=== PATIENT | male | born 1945 ===

== ENCOUNTER 2019-05-05 09:51 | Outpatient (RCR) | payer MEDICARE, MEDICAID ==
[~2019-05-05] VITALS: Ht 172.7 cm; Wt 54.4 kg
[2019-05-20] MEDS ORDERED: Lidocaine HCl 2% Jelly 6ml Tube TOPIC ONE (17:45)
== END 2019-05-21 | disposition home or self-care (01) ==
LOC: WCC 09:51
DX: T86.828 Other complications of skin graft (allograft) (autograft) (principal); L97.523 Non-pressure chronic ulcer of other part of left foot with necrosis of muscle; E11.622 Type 2 diabetes mellitus with other skin ulcer; I12.9 Hypertensive chronic kidney disease with stage 1 through stage 4 chronic kidney disease, or unspecified chronic kidney disease; E11.22 Type 2 diabetes mellitus with diabetic chronic kidney disease; N18.9 Chronic kidney disease, unspecified; Z95.0 Presence of cardiac pacemaker; F17.200 Nicotine dependence, unspecified, uncomplicated
CPT/HCPCS: 11043; 71046

== ENCOUNTER → 2019-05-05 | Outpatient (CLI) | payer MEDICARE, MEDICAID ==
--- NOTE | 2019-05-05 12:47 | Diagnostic Imaging Report ---
Indication: Cough Technique: 2 views of the chest Comparison: None Findings: The lungs are hyperinflated. Bullous changes are seen in the right mid and lower lung. There is accentuation of bronchovascular markings diffusely. There may be some hazy infiltrate in the right perihilar region. Pleural scarring is seen in the right lung apex. The heart size is upper limits normal. There is a pacemaker. There is evidence of prior CABG. No definite effusions. Impression: COPD changes. Right perihilar infiltrate Other findings as noted
== END | disposition home or self-care (01) ==
LOC: RAD 11:26
DX: R05 Cough (principal); J44.9 Chronic obstructive pulmonary disease, unspecified; Z95.0 Presence of cardiac pacemaker
CPT/HCPCS: 71046

== ENCOUNTER 2019-06-02 09:36 | Outpatient (RCR) | payer MEDICARE, MEDICAID | END 2019-06-16 | disposition home or self-care (01) | LOC: WCC 09:36 | DX: T86.828 Other complications of skin graft (allograft) (autograft) (principal); L97.523 Non-pressure chronic ulcer of other part of left foot with necrosis of muscle; E11.622 Type 2 diabetes mellitus with other skin ulcer; Z95.0 Presence of cardiac pacemaker; Z95.5 Presence of coronary angioplasty implant and graft; F17.200 Nicotine dependence, unspecified, uncomplicated; I12.9 Hypertensive chronic kidney disease with stage 1 through stage 4 chronic kidney disease, or unspecified chronic kidney disease; E11.22 Type 2 diabetes mellitus with diabetic chronic kidney disease; N18.9 Chronic kidney disease, unspecified; Z79.899 Other long term (current) drug therapy; Z79.82 Long term (current) use of aspirin | CPT/HCPCS: 11043; 15275; Q4133 ==

== ENCOUNTER 2019-06-16 10:37 | Emergency (ER) | payer MEDICARE, OTHER ==
[~2019-06-16] VITALS: Ht 165.1 cm; Wt 56.7 kg
[2019-06-16] VITALS (7 sets, daily range): BP systolic 87–120; BP diastolic 50–76
--- NOTE | 2019-06-16 10:45 | NUR ---
ED Nurse Note: Patient brought in to the ER by due to SOB. As per , only 30% of pt's heart, lungs, and kidneys are functioning since two years ago but came in today for worsening SOB. Patient was admitted to [facility] couple days ago due to SOB too. Alert and oriented, verbally responsive. O2 tx @ 2LPM. at bedside.
[2019-06-16] MEDS ORDERED: Calcium Chloride 10% 10ml carpuject IVP ONE (11:16)
[2019-06-16] MEDS ORDERED: Sodium Bicarbonate 50ml Carp ONE (11:16)
[2019-06-16] MEDS ORDERED: Solu-MEDROL 125mg Inj IVP ONE (11:30)
[2019-06-16] MEDS ORDERED: Sodium Chloride 550 ML ONE (11:37)
[2019-06-16] MEDS ORDERED: Albuterol ud Inhalation ONE ×3 (11:40→12:28)
--- NOTE | 2019-06-16 11:40 | NUR ---
ED Nurse Note: Bolus 500ml order received and verified with ERMD to administer slowly.
[2019-06-16] MEDS ORDERED: Ipratropium 0.02% Inh Soln 2.5ml UD ONE ×3 (11:41→12:28)
[2019-06-16] MEDS ORDERED: Solu-MEDROL 125mg Inj ONE (11:43)
[2019-06-16 11:47] LABS: BASOPHILS % (AUTO) 0.9 % (0.0-2.0); EOSINOPHILS % (AUTO) 8.9 % (0.0-3.0); HEMATOCRIT 36.7 % (42.0-52.0); HEMOGLOBIN 11.7 G/DL (14.2-18.0); MEAN CORPUSCULAR VOLUME 93 FL (80-99); MONOCYTES % (AUTO) 6.1 % (1.0-10.0); NEUTROPHILS % (AUTO) 75.1 % (45.0-75.0); PLATELET COUNT 143 K/UL (150-450); RED BLOOD COUNT 3.96 M/UL (4.70-6.10); RED CELL DISTRIBUTION WIDTH 15.1 % (11.6-14.8)
[2019-06-16] MEDS: Albuterol ud Inhalation HHN SCH ×3 (11:48→12:30)
[2019-06-16] MEDS: Ipratropium 0.02% Inh Soln 2.5ml UD HHN SCH ×3 (11:48→12:30)
[2019-06-16 12:09] LABS: ANION GAP 12 mmol/L (5-15); BLOOD UREA NITROGEN 65 mg/dL (7-18); CALCIUM 8.9 MG/DL (8.5-10.1); CARBON DIOXIDE 21 MMOL/L (21-32); CHLORIDE 106 MMOL/L (98-107); CREATININE 1.9 MG/DL (0.55-1.30); POTASSIUM 5.2 MMOL/L (3.5-5.1); SODIUM 139 MMOL/L (136-145)
[2019-06-16 12:21] LABS: ALANINE AMINOTRANSFERASE 23 U/L (12-78); ALBUMIN 3.2 G/DL (3.4-5.0); ALBUMIN/GLOBULIN RATIO 0.9 (1.0-2.7); ALKALINE PHOSPHATASE 110 U/L (46-116); ASPARTATE AMINO TRANSFERASE 29 U/L (15-37); CKMB 1.6 NG/ML (0.0-3.6); CREATINE KINASE 53 U/L (26-308)
[2019-06-16] MEDS ORDERED: cefTRIAXone 1 GM in NS 55 ML IVPB ONE (12:30)
[2019-06-16] MEDS ORDERED: Azithromycin 500 MG in NS 275 ML IV ONE (12:30)
--- NOTE | 2019-06-16 13:19 | NUR ---
ED Nurse Note: .
--- NOTE | 2019-06-16 13:30 | NUR ---
ED Nurse Note: Resident seen in bed. Verbally responsive. On 02 tx @ 2LPM. Breathing even and unlabored. VS are stable.
--- NOTE | 2019-06-16 14:05 | NUR ---
ED Nurse Note: Patient found to be in tripod positioning in bed, c/o SOB, dyspnea and appears to be anxious. Patient able speak sentences, but unable to speak full sentences noted. Pulse oximetry reading with 2L N/C on room air was 98% with RR 24, HR 80, paced rhythm. Dr. Devries immediately notified.
--- NOTE | 2019-06-16 14:06 | NUR ---
ED Nurse Note: Placed pateint on 15L nonrebreather mask.
--- NOTE | 2019-06-16 14:10 | NUR ---
ED Nurse Note: Dr. Devries and Julius MENEZES at bedside. Patient became unresponsive, no spontaneous breathing noted. Code blue initiated. Assisted patient's breathing with BVM and CPR initiated immediately. Please see code blue sheet.
--- NOTE | 2019-06-16 14:25 | NUR ---
ED Nurse Note: Patient remained unresponsive. Patient pulse present when RN palpated on the left femoral. RT connected patient to ventilator and pulse oximetry reading maintaining > 94%. Equal chest rise and fall noted. Patient remained on hall monitor. Paced rhythm noted.
--- NOTE | 2019-06-16 14:25 | NUR ---
ED Nurse Note: X-ray tech here at bedside. ET tube, 7.5cm @ 23cm, middle lip.
--- NOTE | 2019-06-16 14:40 | NUR ---
ED Nurse Note: SADA Reina contacted patient's to return to ER.
--- NOTE | 2019-06-16 14:45 | NUR ---
ED Nurse Note: Dr. eDvries here inserting central line to right femoral. Sterile technique/field maintained.
--- NOTE | 2019-06-16 15:10 | NUR ---
ED Nurse Note: RT here attemtped to collect ABC sample.
--- NOTE | 2019-06-16 15:16 | NUR ---
ED Nurse Note: Patient found to have no pulse. Code blue initiated. Dr. Devries at bedside and talking to patient's spouse (Kirk Choi).
--- NOTE | 2019-06-16 15:20 | NUR ---
ED Nurse Note: RN removed Levophed 8mg from crash cart and mixed in D5W as ordered. RN administered via central line at 10mcg/min as ordered. Dr. Devries at bedside.
--- NOTE | 2019-06-16 15:40 | NUR ---
ED Nurse Note: Patient . No palpable pulse or spontaneous breathing noted. PEA noted on playground monitor. Prounced by Dr. Devries.
--- NOTE | 2019-06-16 15:40 | NUR ---
pronounced patient expierd by dr cruz
--- NOTE | 2019-06-16 16:00 | NUR ---
spoke to dr baez the primary md @[phone]. per primary md he will sign the cirtificate
--- NOTE | 2019-06-16 16:30 | NUR ---
ED Nurse Note: Dr. Devries spoke to patient's , son. Provided postmortem care. Provided privacy.
--- NOTE | 2019-06-16 16:50 | NUR ---
called coroners office spoke to luc . case will be declined due per coroners office. since there is a dr to sign the certificate
--- NOTE | 2019-06-16 17:01 | Emergency Room Report ---
History of Present Illness General Chief Complaint: Dyspnea/Respdistress Source: Patient, Significant Other Present Illness HPI 73-year-old M presents ED for evaluation. Brought in by family to ER from wound care clinic here at [facility]. Presents with worsening shortness of breath. History of COPD. states that patient's heart lungs and kidney are operating at 30%. Was being treated for a wound to his ankle. States he has been having a cough and difficulty breathing. Denies chest pain. Denies fevers or chills. No other aggravating relieving factors. Denies any other associated symptoms Allergies: Coded Allergies: NO KNOWN DRUG ALLERGIES (Verified Allergy, Unknown, 06/16/19) Patient History Past Medical History: DM, HTN, renal disease Past Surgical History: none, pacemaker Pertinent Family History: none Social History: Denies: smoking, alcohol use, drug use Immunizations: UTD Reviewed Nursing Documentation: PMH: Agreed; PSxH: Agreed Nursing Documentation-PMH Past Medical History: No History, Except For Hx Cardiac Problems: Yes Hx Pacemaker: Yes - bypass Hx Diabetes: Yes Review of Systems All Other Systems: negative except mentioned in HPI Physical Exam Vital Signs Date Time Temp Pulse Resp B/P (MAP) Pulse Ox O2 Delivery O2 Flow Rate FiO2 06/16/19 10:42 97.0 76 20 101/62 (75) 93 Room Air 06/16/19 10:45 2.0 06/16/19 11:46 28 Sp02 EP Interpretation: reviewed, normal General Appearance: mild distress, cachetic Head: normocephalic Eyes: bilateral eye normal inspection, bilateral eye PERRL ENT: normal ENT inspection Neck: normal inspection Respiratory: chest non-tender, decreased breath sounds, speaking full sentences , wheezing Cardiovascular #1: regular rate, rhythm, no edema Gastrointestinal: normal bowel sounds, non tender, soft, non-distended, no guarding, no rebound Rectal: deferred Genitourinary: no CVA tenderness Musculoskeletal: back normal Neurologic: alert, oriented x3, responsive, motor strength/tone normal, sensory intact, speech normal Psychiatric: judgement/insight normal, memory normal, mood/affect normal, no suicidal/homicidal ideation Skin: other - see nursing notes Lymphatic: normal inspection Procedures Critical Care Time Critical Care Time i. I feel this is a highly complex case requiring extensive working including EKG/Rhythm strip, Xray/CT/US, Blood/urine lab work, repeat exams while in ED, and administration of strong opiates/narcotics for pain control, admission to hospital or close patient follow up. Total time: 60 min bedside evaluation and treatment excludes procedures (EKG). Reason for critical care: respiratory distress, hypotension Possible complications: hypotension, hypertension, [place], shock, arrhythmias, metabolic acidosis, end organ damage, respiratory failure. Interventions: labs, EKG, CXR, nebs, solumedrol, antibiotics. intubation. central line. CPR. Course: Patient presenting with shortness of breath. Wheezing with reduced breath sounds. Given breathing treatments and Solu-Medrol. BNP elevated. Chest x-ray shows R-sided infiltrate, cardiomegaly, pacemaker. Patient became allergic after breathing treatments. Plan to intubate. Patient lost pulse. Compressions started. Patient intubated. Patient regained pulses. Central line placed. Chest x-ray confirms placement. Again loses pulse. Chest compressions started. Medications given. After multiple rounds patient remains in asystole. Prognosis poor. Resuscitative efforts terminated. Patient expires Consultations: nursing staff, EMS, family Performed by: Dr Freire Tolerated well condition = j. because of unstable vital signs this patient had a condition that could potentially threaten life or limb. I feel this is a critical patient who required my full attention while patient was considered critical. Total Critical Care Time excluding procedures was greater than 60 minutes Central Line Central Line : Consent: Emergent Central Line Lumen: triple Maximal Sterile Barrier Tech: yes cap, yes mask, yes sterile gown, yes sterile gloves, yes large sterile sheet, yes hand hygiene, yes chlorhexidine prep Central Line Postion: femoral (R) Complications: none Central Line Post Position: sutured, good blood return Attempts: One Patient Tolerated: Well Complications: None CPR/Code Blue CPR/Code Blue Narrative see code blue sheet for full narrative Intubation Intubation : Consent: Emergent Intubation Method: orotracheal Tube Size (cm): 7.5 Breath Sounds after Intubation: equal Intubation Complications: no complications Post Intubation Xray: Yes Attempts: One Patient Tolerated: Well Complications: None Medical Decision Making Diagnostic Impression: Primary Impression: Respiratory distress ER Course Hospital Course 73-year-old M presenting to ED with SOB Differential diagnoses include: Pneumonia, CHF exacerbation, pneumothorax, fluid overload Clinical course Patient placed on stretcher. 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 After initial history and physical, I ordered nebulizer treatments. I ordered labs, EKG, chest x-ray, blood cultures, UA. Labs - no leukocytosis noted, hemoglobin/hematocrit stable, BUN/Cr elevated, trop neative, BNP elevated EKG - PVCs, no acute ischemic changes interpreted by me CXR - cardiomegaly, pacemaker, R sided infiltrate Patient initially improving after breathing treatments then suddenly decompensated. Became apneic and labored. Plan was to intubate but patient lost pulses. CPR started. Patient intubated. After multiple rounds patient regained pulse. Central line placed. Levophed started. Patient again lost pulse. After multiple rounds patient remains without a pulse. Discussed with family at bedside. Understand prognosis is poor and resuscitative efforts terminated. Patient expires Patient's then sons then came. I discussed findings with sons and . I also spoke to PMD and informed him that patient . I feel this is a highly complex case requiring extensive working including EKG/ Rhythm strip, Xray/CT/US, Blood/urine lab work, repeat exams while in ED, and administration of strong opiates/narcotics for pain control, admission to hospital or close patient follow up. Diagnosis - respiratory distress patient expires in ED Labs Test 06/16/19 11:26 White Blood Count 10.0 K/UL (4.8-10.8) Red Blood Count 3.96 M/UL (4.70-6.10) Hemoglobin 11.7 G/DL (14.2-18.0) Hematocrit 36.7 % (42.0-52.0) Mean Corpuscular Volume 93 FL (80-99) Mean Corpuscular Hemoglobin 29.4 PG (27.0-31.0) Mean Corpuscular Hemoglobin Concent 31.8 G/DL (32.0-36.0) Red Cell Distribution Width 15.1 % (11.6-14.8) Platelet Count 143 K/UL (150-450) Mean Platelet Volume 9.1 FL (6.5-10.1) Neutrophils (%) (Auto) 75.1 % (45.0-75.0) Lymphocytes (%) (Auto) 9.0 % (20.0-45.0) Monocytes (%) (Auto) 6.1 % (1.0-10.0) Eosinophils (%) (Auto) 8.9 % (0.0-3.0) Basophils (%) (Auto) 0.9 % (0.0-2.0) Sodium Level 139 MMOL/L (136-145) Potassium Level 5.2 MMOL/L (3.5-5.1) Chloride Level 106 MMOL/L (98-107) Carbon Dioxide Level 21 MMOL/L (21-32) Anion Gap 12 mmol/L (5-15) Blood Urea Nitrogen 65 mg/dL (7-18) Creatinine 1.9 MG/DL (0.55-1.30) Estimat Glomerular Filtration Rate mL/min (>60) Glucose Level 156 MG/DL (74-106) Lactic Acid Level 1.30 mmol/L (0.4-2.0) Calcium Level 8.9 MG/DL (8.5-10.1) Total Bilirubin 1.0 MG/DL (0.2-1.0) Aspartate Amino Transf (AST/SGOT) 29 U/L (15-37) Alanine Aminotransferase (ALT/SGPT) 23 U/L (12-78) Alkaline Phosphatase 110 U/L (46-116) Total Creatine Kinase 53 U/L (26-308) Creatine Kinase MB 1.6 NG/ML (0.0-3.6) Creatine Kinase MB Relative Index 3.0 Troponin I 0.027 ng/mL (0.000-0.056) Pro-B-Type Natriuretic Peptide 30195 pg/mL (0-125) Total Protein 6.6 G/DL (6.4-8.2) Albumin 3.2 G/DL (3.4-5.0) Globulin 3.4 g/dL Albumin/Globulin Ratio 0.9 (1.0-2.7) EKG Diagnostic Results Rate: normal Rhythm: other - PVCs ST Segments: no acute changes ASA given to the pt in ED: No Rhythm Strip Diag. Results EP Interpretation: yes Rhythm: no ectopy, other - PVCs Chest X-Ray Diagnostic Results Chest X-Ray Diagnostic Results : Chest X-Ray Ordered: Yes # of Views/Limited/Complete: 1 View Indication: Shortness of Breath EP Interpretation: Yes Interpretation: no pneumothorax, other - cardiomegaly. R sided infiltrate. pacemaker Impression: Other - pneumonia Electronically Signed by: Electronically signed by Amadou Freire MD Last Vital Signs Date Time Temp Pulse Resp B/P (MAP) Pulse Ox O2 Delivery O2 Flow Rate FiO2 06/16/19 14:58 97.5 78 19 120/76 100 Nasal Cannula 2.0 100 Status: improved Disposition: Condition: Referrals: NON PHYSICIAN (PCP) Amadou Freire MD Jun 16, 2019 17:01
--- NOTE | 2019-06-16 18:30 | NUR ---
ED Nurse Note: Per SILVIA Mathis, ok to remove central line and ET tube. RN removed tube and IV lines.
--- NOTE | 2019-06-16 19:10 | NUR ---
HAND-OFF: Report given to Samia TOMLIN.
--- NOTE | 2019-06-16 19:30 | NUR ---
ED Nurse Note: Shift report given for pt, pt to be taken to morgue when family completed with visit. family and MD at bedside.
--- NOTE | 2019-06-16 19:30 | NUR ---
ED Nurse Note: Dr. Engel at bedside and speaking to family members. Provided privacy.
--- NOTE | 2019-06-16 20:45 | NUR ---
ED Nurse Note: Pt being taken to morgue via еленаraicha with [facility], pt cleaned and bagged oper protocol.
--- NOTE | 2019-06-17 10:44 | Diagnostic Imaging Report ---
Indication: Dyspnea Comparison: None A single view chest radiograph was obtained. Findings: Pulmonary vascular congestion suspected. Heart is enlarged. Sternotomy and left-sided pacemaker again noted. Chronic pleural thickening also demonstrated on the right. IMPRESSION: Similar radiographic appearance. Pulmonary vascular congestion suspected
--- NOTE | 2019-06-17 10:44 | Diagnostic Imaging Report ---
Indication: Intubation Comparison: 05/05/2019 A single view chest radiograph was obtained. Findings: Endotracheal tube is a above the elvira in good position about 3 cm above the elvira. There is evidence of a mild pulmonary vascular congestion. Pacemaker and sternotomy again noted. The heart is enlarged. Chronic pleural disease with thickening noted on the right. IMPRESSION: Endotracheal tube in good position. Suspected mild pulmonary vascular congestion
--- NOTE | 2019-06-17 11:20 | Cardiology Report ---
APPROVED REPORT EKG Measurement Heart [id number] Sinus rhythm with 1st degree AV block with occasional ventricular pacing Left axis deviation Cannot rule out Anterior infarct, age undetermined Prolonged QT Abnormal ECG
== END 2019-06-16 20:45 | disposition expired ==
LOC: EMR 11:15 → EDBEDREQ 13:42 → EDBEDREQSVC 14:27 → EMR 20:45
DX: R06.03 Acute respiratory distress (principal); E11.9 Type 2 diabetes mellitus without complications; Z95.1 Presence of aortocoronary bypass graft; Z95.0 Presence of cardiac pacemaker; I10 Essential (primary) hypertension; N28.9 Disorder of kidney and ureter, unspecified
CPT/HCPCS: 31500; 36415; 36569; 71045; 80053; 82550; 82553; 82962; 83605; 83880; 84484; 85025; 87040; 92950; 93005; 94002; 94640; 94664; 96374; 99291; J0171; J0456; J0696; J2930; J3490; J7040; J7050